=== PATIENT | female | born 1980 | race Caucasian/White ===

== ENCOUNTER 2020-02-14 12:25 | Emergency (ER) | payer MEDICAID, SELFPAY ==
[~2020-02-14] VITALS: Ht 157.5 cm; Wt 117.9 kg
[~2020-02-14 12:25] MED LIST: PRO10 PO
[2020-02-14 12:51] VITALS: BP_SYST 148
[2020-02-14] MEDS ORDERED: MECLIZINE HCL 25 MG TABLET (ANITVERT) PO ONE (13:30)
[2020-02-14 13:46] LABS: BASOPHILS # (AUTO) 0.1 K/uL (0.0-0.2); BASOPHILS % (AUTO) 0.5 % (0.0-2.0); EOSINOPHILS # (AUTO) 0.1 K/uL (0.0-0.4); EOSINOPHILS % (AUTO) 0.7 % (0.0-4.0); HEMATOCRIT 34.5 % (36-48); LYMPHOCYTES # (AUTO) 1.8 K/uL (1.0-5.5); LYMPHOCYTES % (AUTO) 17.5 % (20.5-51.5); MEAN CORPUSCULAR HEMOGLOBIN 23 pg (27-31); MEAN CORPUSCULAR HGB CONC 32 % (32-36); MEAN CORPUSCULAR VOLUME 72 fL (79.0-98.0); MONOCYTES # (AUTO) 0.7 K/uL (0.0-1.0); MONOCYTES % (AUTO) 6.9 % (1.7-9.3); NEUTROPHILS # (AUTO) 7.7 K/uL (1.8-7.7); NEUTROPHILS % (AUTO) 74.4 % (40.0-70.0); PLATELET COUNT (AUTO) 339 K/uL (130-430); RED BLOOD CELL COUNT(AUTO) 4.82 MIL/uL (4.2-6.2); RED CELL DISTRIBUTION WIDTH 18.5 % (9.0-15.0); WHITE BLOOD COUNT (AUTO) 10.4 K/uL (4.8-10.8)
[2020-02-14 14:08] LABS: ALBUMIN 3.7 g/dL (3.4-4.8); CALCIUM 8.4 mg/dL (8.4-11.0); CREATININE 0.86 mg/dL (0.55-1.30); POTASSIUM 3.9 mmol/L (3.5-5.1); TOTAL BILIRUBIN 0.3 mg/dL (0.0-1.0)
[2020-02-14 15:23] VITALS: BP_SYST 148
== END 2020-02-14 15:23 | disposition home or self-care (01) ==
LOC: SED 12:25
DX: F41.9 Anxiety disorder, unspecified (principal); Z90.49 Acquired absence of other specified parts of digestive tract; Z88.0 Allergy status to penicillin; Z20.828 Contact with and (suspected) exposure to other viral communicable diseases
CPT/HCPCS: 80053; 85025; 99283; J8597; U0003; C9803

== ENCOUNTER 2020-08-05 09:21 | Emergency (ER) | payer MEDICAID, SELFPAY ==
[~2020-08-05] VITALS: Ht 157.5 cm; Wt 117.9 kg
[2020-08-05 09:26] VITALS: BP_SYST 154
[2020-08-05] MEDS ORDERED: KETOROLAC TROMETHAMINE 60 MG/2 ML VIAL IM ONE (09:45)
[2020-08-05] MEDS ORDERED: HYDR-3917 PO (10:27)
[2020-08-05] MEDS ORDERED: NAPR-688 PO (10:27)
[2020-08-05] MEDS ORDERED: SOM350 PO (10:27)
[2020-08-05 10:56] VITALS: BP_SYST 112
== END 2020-08-05 10:56 | disposition home or self-care (01) ==
LOC: SED 09:21
DX: M54.5 Low back pain (principal); F41.9 Anxiety disorder, unspecified; Z88.0 Allergy status to penicillin; Z79.899 Other long term (current) drug therapy
CPT/HCPCS: 72100; 96372; 99283; J1885

== ENCOUNTER 2021-01-05 08:15 | Emergency (ER) | payer MEDICAID ==
[~2021-01-05] VITALS: Ht 157.5 cm; Wt 113.4 kg
[~2021-01-05 08:15] MED LIST changes: +HYDR-3917 PO; +NAPR-688 PO; +SOM350 PO
[2021-01-05 08:35] VITALS: BP_SYST 141
--- NOTE | 2021-01-05 08:41 | NUR ---
Patient to ER bed 5 to gown for evaluation. Side rails up. Report given to CRYSTAL Salas.
--- NOTE | 2021-01-05 08:45 | NUR ---
Pt is AAO and ambulatory reporting right sided flank pain. Pt also reports urinary s/s that include frequency and fever. Pt rates pain 8/10 on pain scale.
--- NOTE | 2021-01-05 09:25 | NUR ---
Dr. Mcrae at bedside to assess.
--- NOTE | 2021-01-05 09:35 | NUR ---
Lab at bedside for blood draw.
--- NOTE | 2021-01-05 09:40 | NUR ---
Urine specimen obtained and sent to lab for analysis.
[2021-01-05 09:45] LABS: BASOPHILS # (AUTO) 0.1 K/uL (0.0-0.2); BASOPHILS % (AUTO) 0.6 % (0.0-2.0); EOSINOPHILS # (AUTO) 0.1 K/uL (0.0-0.4); EOSINOPHILS % (AUTO) 1.1 % (0.0-4.0); HEMATOCRIT 33.4 % (36-48); HEMOGLOBIN 10.2 g/dL (12.0-16.0); LYMPHOCYTES % (AUTO) 18.2 % (20.5-51.5); MEAN CORPUSCULAR HEMOGLOBIN 21 pg (27-31); MEAN CORPUSCULAR HGB CONC 31 % (32-36); MEAN CORPUSCULAR VOLUME 68 fL (79.0-98.0); MONOCYTES # (AUTO) 0.6 K/uL (0.0-1.0); MONOCYTES % (AUTO) 5.8 % (1.7-9.3); NEUTROPHILS # (AUTO) 8.1 K/uL (1.8-7.7); NEUTROPHILS % (AUTO) 74.3 % (40.0-70.0); PLATELET COUNT (AUTO) 333 K/uL (130-430); RED BLOOD CELL COUNT(AUTO) 4.89 MIL/uL (4.2-6.2); WHITE BLOOD COUNT (AUTO) 10.9 K/uL (4.8-10.8)
[2021-01-05 09:46] LABS: BILIRUBIN,URINE NEGATIVE (NEGATIVE); BLOOD, URINE NEGATIVE (NEGATIVE); CLARITY/URINE CLEAR (CLEAR); COLOR,URINE YELLOW (YELLOW); GLUCOSE,URINE NEGATIVE (NEGATIVE); KETONES,URINE NEGATIVE (NEGATIVE); LEUKOCYTE ESTERASE ,URINE NEGATIVE (NEGATIVE); NITRITE, URINE NEGATIVE (NEGATIVE); PH,URINE 5.5 (5.0-8.0); PROTEIN URINE NEGATIVE (NEGATIVE); UROBILINOGEN,URINE 0.2 (0.2-1.0)
[2021-01-05] MEDS ORDERED: KETOROLAC TROMETHAMINE 60 MG/2 ML VIAL IM ONE (11:00)
[2021-01-05 11:25] VITALS: BP_SYST 141
--- NOTE | 2021-01-05 11:25 | NUR ---
Patient given written and verbal discharge instructions and verbalizes understanding. ER MD discussed with patient the results and treatment provided. Patient in stable condition. ID arm band removed. Rx of Motrin and Flexeril given. Patient educated on pain management and to follow up with PMD. Pain Scale 0. Opportunity for questions provided and answered. Medication side effect fact sheet provided.
== END 2021-01-05 11:25 | disposition home or self-care (01) ==
LOC: SED 08:15
DX: D64.9 Anemia, unspecified (principal); R10.9 Unspecified abdominal pain
CPT/HCPCS: 36415; 81003; 85025; 96372; 99283; J1885

== ENCOUNTER 2021-01-30 02:43 | Emergency (ER) | payer MEDICAID ==
[~2021-01-30] VITALS: Ht 154.9 cm; Wt 117.9 kg
[2021-01-30 02:50] VITALS: BP_SYST 136
[2021-01-30] MEDS ORDERED: IBUPROFEN 600 MG TABLET PO ONE (03:45)
[2021-01-30] MEDS ORDERED: HYDR-3917 PO (05:33)
[2021-01-30] MEDS ORDERED: IBUP-1969 PO (05:33)
[2021-01-30 06:07] VITALS: BP_SYST 136
== END 2021-01-30 06:05 | disposition home or self-care (01) ==
LOC: SED 02:43
DX: S93.401A Sprain of unspecified ligament of right ankle, initial encounter (principal); S20.212A Contusion of left front wall of thorax, initial encounter; Z79.899 Other long term (current) drug therapy; W18.39XA Other fall on same level, initial encounter; Y93.89 Activity, other specified; Y92.89 Other specified places as the place of occurrence of the external cause; Y99.8 Other external cause status
CPT/HCPCS: 71100; 99284

== ENCOUNTER 2021-03-19 12:07 | Emergency (ER) | payer MEDICAID, SELFPAY ==
[~2021-03-19] VITALS: Ht 157.5 cm; Wt 117.9 kg
[~2021-03-19 12:07] MED LIST changes: +IBUP-1969 PO
[2021-03-19 12:15] VITALS: BP_SYST 154
--- NOTE | 2021-03-19 12:15 | NUR ---
Pt. bib , has had covid for week, states feels so much better, had a phone f/u appointment today with PCP and pt. said she had pain on inspiration so she was told to come to the closest ER to be evaluated
--- NOTE | 2021-03-19 12:17 | NUR ---
ER in tent examining patient.
--- NOTE | 2021-03-19 13:43 | NUR ---
radiology doing CXR
[2021-03-19] MEDS ORDERED: IBUP-1969 PO (13:54)
[2021-03-19] MEDS ORDERED: ALBU8.5H8 INH (13:54)
[2021-03-19] MEDS ORDERED: PRED20TA PO (13:54)
--- NOTE | 2021-03-19 14:00 | NUR ---
Patient given written and verbal discharge instructions and verbalizes understanding. ER discussed with patient the results and treatment provided. Patient in stable condition. ID arm band removed. Rx of albuterol, ibuprofen, and prednisone given. Patient educated on pain management and to follow up with PMD. Pain Scale 0. Opportunity for questions provided and answered. Medication side effect fact sheet provided.
[2021-03-19 14:01] VITALS: BP_SYST 154
== END 2021-03-19 14:00 | disposition home or self-care (01) ==
LOC: SED 12:07
DX: R07.81 Pleurodynia (principal); Z88.0 Allergy status to penicillin; Z79.899 Other long term (current) drug therapy
CPT/HCPCS: 71045; 93005; 99283

== ENCOUNTER 2021-07-09 10:26 | Emergency (ER) | payer MEDICAID ==
[~2021-07-09] VITALS: Ht 157.5 cm; Wt 117.9 kg
[~2021-07-09 10:26] MED LIST changes: +ALBU8.5H8 INH; +PRED20TA PO
[2021-07-09 10:38] VITALS: BP_SYST 128
[2021-07-09] MEDS ORDERED: KETOROLAC TROMETHAMINE 60 MG/2 ML VIAL IM ONE (13:15)
[2021-07-09 14:18] LABS: BILIRUBIN,URINE NEGATIVE (NEGATIVE); CLARITY/URINE CLEAR (CLEAR); COLOR,URINE YELLOW (YELLOW); GLUCOSE,URINE NEGATIVE (NEGATIVE); KETONES,URINE NEGATIVE (NEGATIVE); LEUKOCYTE ESTERASE ,URINE NEGATIVE (NEGATIVE); NITRITE, URINE NEGATIVE (NEGATIVE); PROTEIN URINE NEGATIVE (NEGATIVE); UROBILINOGEN,URINE 0.2 (0.2-1.0)
[2021-07-09] MEDS ORDERED: NAPR-690 PO (14:18)
[2021-07-09 14:31] VITALS: BP_SYST 128
[2021-07-09 14:31] LABS: BLOOD, URINE TRACE (NEGATIVE)
[2021-07-09 14:32] LABS: BACTERIA,URINE FEW /HPF (None Seen); MUCUS,URINE None Seen /LPF (None Seen); RBC,URINE 0-3 /HPF (0-3); WBC,URINE 0-3 /HPF (0-3)
== END 2021-07-09 14:31 | disposition home or self-care (01) ==
LOC: SED 10:26
DX: M43.10 Spondylolisthesis, site unspecified (principal); Z88.0 Allergy status to penicillin
CPT/HCPCS: 81000; 99283; J1885

== ENCOUNTER 2021-08-21 20:57 | Emergency (ER) | payer MEDICAID ==
[~2021-08-21] VITALS: Ht 157.5 cm; Wt 117.9 kg
[~2021-08-21 20:57] MED LIST changes: +NAPR-690 PO
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
[2021-08-21 21:16] VITALS: BP_SYST 148
--- NOTE | 2021-08-21 22:12 | NUR ---
Patient to ER bed h1 to gown for evaluation. Side rails up. Report given to Giselle ROJAS.
--- NOTE | 2021-08-21 23:00 | NUR ---
Dr. Nicole at bedside with patient.
[2021-08-21] MEDS ORDERED: IBUPROFEN 600 MG TABLET ONE (23:13)
[2021-08-21] MEDS ORDERED: IBUPROFEN 600 MG TABLET PO ONE (23:15)
[2021-08-21] MEDS ORDERED: IBUP-1969 PO (23:25)
[2021-08-22 00:30] VITALS: BP_SYST 124
--- NOTE | 2021-08-22 00:30 | NUR ---
Patient given written and verbal discharge instructions and verbalizes understanding. ER Dr. Nicole discussed with patient the results and treatment provided. Patient in stable condition. ID arm band removed. Rx of ibuprofen given. Patient educated on pain management and to follow up with PMD. Pain Scale 0. Opportunity for questions provided and answered. Medication side effect fact sheet provided.
== END 2021-08-22 00:30 | disposition home or self-care (01) ==
LOC: SED 20:57
DX: S39.012A Strain of muscle, fascia and tendon of lower back, initial encounter (principal); Z88.0 Allergy status to penicillin; Z79.899 Other long term (current) drug therapy; V89.2XXA Person injured in unspecified motor-vehicle accident, traffic, initial encounter; Y93.89 Activity, other specified; Y92.89 Other specified places as the place of occurrence of the external cause; Y99.8 Other external cause status
CPT/HCPCS: 72100-TC; 81025; 99283

== ENCOUNTER 2021-10-05 18:33 | Emergency (ER) | payer MEDICAID, OTHER ==
[~2021-10-05] VITALS: Ht 152.4 cm; Wt 117.9 kg
[2021-10-05 19:00] VITALS: BP_SYST 160
[2021-10-05] MEDS ORDERED: ACET325T53 PO (20:23)
[2021-10-05] MEDS ORDERED: IBUP-2018 PO (20:23)
[2021-10-05 20:40] VITALS: BP_SYST 148
== END 2021-10-05 20:40 | disposition home or self-care (01) ==
LOC: SED 18:33
DX: B34.9 Viral infection, unspecified (principal); J02.9 Acute pharyngitis, unspecified; R05.9 Cough, unspecified; R50.9 Fever, unspecified; Z88.0 Allergy status to penicillin; Z79.899 Other long term (current) drug therapy; Z20.822 Contact with and (suspected) exposure to COVID-19
CPT/HCPCS: 36415; 93005; 99284

== ENCOUNTER 2022-06-23 12:06 | Emergency (ER) | payer MEDICAID ==
[~2022-06-23] VITALS: Ht 157.5 cm; Wt 117.9 kg
[~2022-06-23 12:06] MED LIST changes: +ACET325T53 PO; +BENZ1LOZ73 PO; +IBUP-1970 PO; +IBUP-2018 PO
[2022-06-23 12:17] VITALS: BP_SYST 131
--- NOTE | 2022-06-23 12:20 | NUR ---
RECEIVED PT FROM CRYSTAL JOINER. PT BIBS FOR C/O BODY ACHES. PT IS AAOX4. ON R/A. NORMAL S1S2. DENIES N/V/D/C. SKIN WARM, CDI, NO EDEMA. DISTAL PULSES NORMAL. PAIN 2/10 GENERALIZED. SIDERAILS UP X2.
--- NOTE | 2022-06-23 12:25 | NUR ---
DR. CAMACHO AT BEDSIDE TO ASSESS PT.
[2022-06-23 13:03] LABS: BASOPHILS % (AUTO) 0.3 % (0.0-2.0); EOSINOPHILS % (AUTO) 0.6 % (0.0-4.0); HEMATOCRIT 33.5 % (36-48); HEMOGLOBIN 10.6 g/dL (12.0-16.0); LYMPHOCYTES # (AUTO) 0.4 K/uL (1.0-5.5); LYMPHOCYTES % (AUTO) 5.3 % (20.5-51.5); MEAN CORPUSCULAR HEMOGLOBIN 22 pg (27-31); MEAN CORPUSCULAR HGB CONC 32 % (32-36); MEAN CORPUSCULAR VOLUME 70 fL (79.0-98.0); MONOCYTES # (AUTO) 0.4 K/uL (0.0-1.0); MONOCYTES % (AUTO) 5.7 % (1.7-9.3); NEUTROPHILS # (AUTO) 6.1 K/uL (1.8-7.7); NEUTROPHILS % (AUTO) 88.1 % (40.0-70.0); PLATELET COUNT (AUTO) 228 K/uL (130-430); RED BLOOD CELL COUNT(AUTO) 4.81 MIL/uL (4.2-6.2); RED CELL DISTRIBUTION WIDTH 18.4 % (9.0-15.0)
[2022-06-23 13:13] LABS: CALCIUM 8.1 mg/dL (8.4-11.0); CREATININE 0.85 mg/dL (0.55-1.30)
[2022-06-23 13:17] LABS: ALBUMIN 3.4 g/dL (3.4-4.8); TOTAL BILIRUBIN 0.3 mg/dL (0.0-1.0)
--- NOTE | 2022-06-23 13:57 | NUR ---
LAB REPORTED PT IS COVID POSITIVE. DR. CAMACHO MADE AWARE.
--- NOTE | 2022-06-23 14:04 | NUR ---
URINE OBTAINED AND TAKEN TO LAB.
[2022-06-23 14:21] LABS: BILIRUBIN,URINE NEGATIVE (NEGATIVE); BLOOD, URINE NEGATIVE (NEGATIVE); COLOR,URINE YELLOW (YELLOW); GLUCOSE,URINE NEGATIVE (NEGATIVE); KETONES,URINE NEGATIVE (NEGATIVE); LEUKOCYTE ESTERASE ,URINE NEGATIVE (NEGATIVE); NITRITE, URINE NEGATIVE (NEGATIVE); PH,URINE 7.5 (5.0-8.0); PROTEIN URINE NEGATIVE (NEGATIVE); UROBILINOGEN,URINE 0.2 (0.2-1.0)
[2022-06-23 14:22] LABS: CLARITY/URINE SLIGHTLY HAZY (CLEAR)
[2022-06-23 14:55] VITALS: BP_SYST 134
--- NOTE | 2022-06-23 14:55 | NUR ---
DR. CAMACHO AT BEDSIDE TO DISCUSS POC.
--- NOTE | 2022-06-23 14:56 | NUR ---
Patient given written and verbal discharge instructions and verbalizes understanding. ER MD discussed with patient the results and treatment provided. Patient in stable condition. ID arm band removed. Patient educated on pain management and to follow up with PMD. Pain Scale 0/10. Opportunity for questions provided and answered. Medication side effect fact sheet provided.
== END 2022-06-23 14:56 | disposition home or self-care (01) ==
LOC: SED 12:06
DX: U07.1 COVID-19 (principal); R53.1 Weakness; M79.10 Myalgia, unspecified site; R51.9 Headache, unspecified; E11.9 Type 2 diabetes mellitus without complications; I10 Essential (primary) hypertension; Z88.0 Allergy status to penicillin; Z79.899 Other long term (current) drug therapy
CPT/HCPCS: 36415; 80053; 81003; 83605; 85025; 87040; 99283

== ENCOUNTER 2023-09-30 19:24 | Emergency (ER) | payer MEDICAID, OTHER ==
[~2023-09-30] VITALS: Ht 157.5 cm; Wt 131.5 kg
[2023-09-30 19:35] VITALS: BP_SYST 171; PULSE 108; RESP 18; TEMP 98.4; O2SAT 98
[2023-09-30 21:15] VITALS: BP_SYST 171; PULSE 108; RESP 18; TEMP 98.4; O2SAT 98
== END 2023-09-30 21:17 | disposition left against medical advice (07) ==
LOC: SED 19:24
DX: J45.909 Unspecified asthma, uncomplicated (principal); Z53.21 Procedure and treatment not carried out due to patient leaving prior to being seen by health care provider